=== PATIENT | female | born 1985 | race Caucasian/White ===

== ENCOUNTER 2019-04-04 19:25 | Emergency (ER) | payer BC ==
[2019-04-04] MEDS ORDERED: KETOROLAC 30 MG/ML VIAL IVP ONE (19:33)
[2019-04-04] MEDS ORDERED: ACETAMINOPHEN 500 MG TABLET PO ONE (19:34)
[2019-04-04] MEDS ORDERED: IBUPROFEN 400 MG TABLET PO ONE (19:34)
--- NOTE | 2019-04-04 19:41 | Emergency Department Record ---
History of Present Illness - General Chief complaint: Rash Stated complaint: RASH,FEVER Time Seen by Provider: 04/04/19 19:33 Source: Patient Mode of Arrival: Wheelchair Limitations: No limitations - History of Present Illness Initial comments: 33 yo female presents to ED for evaluation of a rash that began approximately 2.5 days ago. Patient reports similar symptoms previously, was seen and evaluated at the [facility] this morning and treated for possible allergic dermatitis. Patient returned to the [facility] for the development of fever symptoms this evening. Patient was swabbed for influenza prior to arriving from [facility], negative. Patient denies abdominal pain, cough, flank pain, or urinary symptoms. Patient denies health problems at her baseline. MD complaint: Rash Onset/Timin -: Days(s) Location: Chest Severity: Moderate Consistency: Constant Improves with: None Worsens with: None Context: None Associated symptoms: Denies other symptoms Treatments Prior to Arrival: None - Related Data Allergies Allergy/AdvReac Type Severity Reaction Status Date / Time No Known Allergies Allergy Unverified 04/04/19 18:41 Review of Systems Constitutional: Reports: Fever. Denies: Chills, Malaise, Night sweats Eyes: Denies: Eye discharge, Eye pain ENT: Denies: Congestion, Ear pain, Epistaxis Respiratory: Denies: Cough, Dyspnea Cardiovascular: Denies: Chest pain, Dyspnea on exertion Endocrine: Denies: Fatigue, Heat or cold intolerance Gastrointestinal: Denies: Abdominal pain, Nausea, Vomiting Genitourinary: Denies: Incontinence, Retention Musculoskeletal: Reports: Myalgia. Denies: Arthralgia, Back pain Skin: Reports: Rash. Denies: Bruising, Change in color Neurological: Reports: Headache. Denies: Abnormal gait, Confusion, Seizure Psychiatric: Denies: Anxiety Hematological/Lymphatic: Denies: Anemia, Blood Clots Past Medical History - SOCIAL HISTORY Smoking Status: Never smoker Alcohol Use: None Drug Use: None - RESPIRATORY Hx Respiratory Disorders: No - CARDIOVASCULAR Hx Cardio Disorders: No - NEURO Hx Neuro Disorders: No - GI Hx GI Disorders: No - Hx Genitourinary Disorders: No - ENDOCRINE Hx Endocrine Disorders: No - MUSCULOSKELETAL Hx Musculoskeletal Disorders: No - PSYCH Hx Psych Problems: No - HEMATOLOGY/ONCOLOGY Hx Hematology/Oncology Disorders: No Family Medical History Any Significant Family History?: No Family Hx Comment (NOT TO BE USED IN PLACE OF ITEMS BELOW): denies Physical Exam - General General Appearance: Alert, Oriented x3, Cooperative, Mild distress Limitations: No limitations - Head Head exam: Atraumatic, Normocephalic, Normal inspection Head exam detail: negative: Abrasion, Contusion, Byrd's sign, General tenderness, Hematoma, Laceration - Eye Eye exam: Normal appearance. negative: Conjunctival injection, Periorbital swelling, Periorbital tenderness, Scleral icterus - ENT Ear exam: negative: Auricular hematoma, Auricular trauma Nasal Exam: negative: Active bleeding, Discharge, Dried blood, Foreign body Mouth exam: negative: Drooling, Laceration, Muffled voice, Tongue elevation - Neck Neck exam: Normal inspection. negative: Meningismus, Tenderness - Respiratory Respiratory exam: Normal lung sounds bilaterally. negative: Rales, Respiratory distress, Rhonchi, Stridor - Cardiovascular Cardiovascular Exam: Normal rhythm, Normal heart sounds, Tachycardia - GI/Abdominal GI/Abdominal exam: Soft. negative: Rebound, Rigid, Tenderness - Rectal Rectal exam: Deferred - exam: Deferred - Extremities Extremities exam: Normal inspection. negative: Pedal edema, Tenderness - Back Back exam: Denies: CVA tenderness (R), CVA tenderness (L) - Neurological Neurological exam: Alert, Normal gait, Oriented X3 - Psychiatric Psychiatric exam: Normal affect, Normal mood - Skin Skin exam: Normal color. negative: Abrasion Type of lesion: negative: abrasion Course Vital Signs 04/04/19 19:30 Temperature 100.6 F H Pulse Rate [ 105 H Left] Respiratory 16 Rate Blood Pressure 132/84 [Left Arm] Pulse Ox 99 - Reevaluation(s) Reevaluation #1: 04/04/19 20:22 Laboratory studies were reviewed and appear grossly unremarkable for an acute process. CXR: Negative for an acute process. Patient was updated on all results, reports improvement in her symptoms. Repeat temperature/pulse are >> Reevaluation #2: 04/04/19 20:48 Patient was reassessed and updated on all results Patient's repeat temperature is 99.0, patient reports that she is feeling much better. Pulse 94-97 on re-examination. patient's headache symptoms are improved from 8/10 to 2-3/10. No clinical evidence for bacterial infection based on my examination to warrant antibiotic administration at this time, LP does not appear indicated based on my examination. Patient's symptoms appear c/w probable viral syndrome, recommended continued treatment with Tylenol/Motrin as directed, continued Prednisone as prescribed for her rash symptoms. Patient appears stable for discharge at this time. Patient was instructed to return to ED for any worsening of her symptoms. Medical Decision Making - Lab Data Result diagrams: 04/04/19 19:40 04/04/19 19:40 Disposition Disposition: Discharge Clinical Impression: Viral syndrome, Dermatitis Disposition: Home, Self-Care Condition: (2) Stable Instructions: Acute Rash (ED) Additional Instructions: Return to ED if your symptoms worsen or if you have any concerns. Continue Prednisone as previously prescribed. Follow-up with your family doctor in 3-5 days as directed. Forms: Patient Portal Access Time of Disposition: 20:51 Quality - Quality Measures Quality Measures: N/A - Blood Pressure Screening Does Patient Have Any of the Following: No Blood Pressure Classification: Normal BP Reading Systolic Measurement: 109 Diastolic Measurement: 45 Screening for High Blood Pressure: < Normal BP, F/U Not Required > [[id number]]
[2019-04-04 19:56] LABS: ABSOLUTE NEUTROPHIL COUNT 8.81; BASO % 0.2 % (0-6); EOS % 0.5 % (0-6); GRAN % 82.2 % (47-80); HEMATOCRIT 40.5 % (35.0-47.0); HEMOGLOBIN 13.4 gm/dl (11.6-16.0); MEAN CELL VOLUME 89.8 fl (81-97); MEAN CORPUSCULAR HEMOGLOBIN 29.7 pg (27-33); MEAN CORPUSCULAR HGB CONC 33.1 g/dl (32-36); MEAN PLATELET VOLUME 9.6 fl (7.4-10.4); MONO % 8.1 % (0-9); PLATELET COUNT 283 K/uL (130-400); RED BLOOD COUNT 4.51 M/uL (3.80-5.40); WHITE BLOOD COUNT W/O DIFF 10.7 K/uL (4.2-12.2)
[2019-04-04 19:57] LABS: URINE APPEARANCE CLOUDY; URINE BILIRUBIN NEGATIVE (NEGATIVE); URINE BLOOD NEGATIVE (NEGATIVE); URINE COLOR YELLOW; URINE GLUCOSE (UA) NEGATIVE (NEGATIVE); URINE KETONE NEGATIVE (NEGATIVE); URINE LEUKOCYTE ESTERASE NEGATIVE (NEGATIVE); URINE NITRITE NEGATIVE (NEGATIVE); URINE PROTEIN NEGATIVE (NEGATIVE); URINE UROBILINOGEN 0.2 E.U./dL (0.20 - 1.00)
[2019-04-04] MEDS ORDERED: 0.9 % SODIUM CHLORIDE 1000ML 1,000 ML IV SCH (20:00)
[2019-04-04 20:08] LABS: BLOOD UREA NITROGEN 11 mg/dL (6-20); CREATININE 0.5 mg/dL (0.5-0.9); EST GLOMERULAR FILTRATION RATE > 60 mL/min
[2019-04-04 20:09] LABS: TOTAL PROTEIN 7.1 g/dL (6.6-8.7)
[2019-04-04 20:10] LABS: GLUCOSE,RANDOM 92 mg/dL (74-109)
[2019-04-04 20:13] LABS: ALB/GLOB RATIO 1.4 (1.1-1.8); ALBUMIN 4.2 g/dL (4.0-5.0); ALKALINE PHOSPHATASE 59 U/L (35-104); ALT/SGPT 12 U/L (<33); AST/SGOT 15 U/L (10.0-35.0); C-REACTIVE PROTEIN 1.42 mg/dL (<0.5)
--- NOTE | 2019-04-04 20:23 | RADIOLOGY REPORT ---
EXAMINATION: Two View Chest Radiographs EXAM DATE: 04/04/2019 7:59 PM TECHNIQUE: Frontal and lateral views INDICATION: fever COMPARISON: None ENCOUNTER: Not applicable FINDINGS: The heart, mediastinum, and pulmonary vasculature are normal. No lung consolidation or pleural effu sions are present. No pneumothorax. IMPRESSION: No acute cardiopulmonary disease is present. Dictated by: Renetta Diego MD on 04/04/2019 8:22 PM. .
[2019-04-04 20:46] LABS: ERYTHROCYTE SEDIMENTATION RATE 14 mm/hr (0-20)
== END 2019-04-04 21:04 | disposition home or self-care (01) ==
LOC: ER 19:25
DX: B34.9 Viral infection, unspecified (principal); L30.9 Dermatitis, unspecified
CPT/HCPCS: 71046; 80053; 81003; 85025; 85651; 86140; 99284; J7030